=== PATIENT | female | born 1955 | race Caucasian/White ===

== ENCOUNTER 2019-12-16 02:05 | Emergency (ER) | payer BC ==
[~2019-12-16] VITALS: Ht 175.3 cm; Wt 102.1 kg
[~2019-12-16 02:05] MED LIST: AMBIEN CR12.5 MG PO; CYCLOBENZAPRINE5 MG PO; MACRODANTIN100 MG PO; MOTRIN200 MG PO; PROZAC40 MG PO; WELLBUTRIN SR150 MG PO; WELLBUTRIN XL300 MG PO
[2019-12-16] MEDS ORDERED: HYDROCODONE/APAP 10MG-325MG TAB PO ONE (02:15)
--- NOTE | 2019-12-16 03:41 | Emergency Department Note ---
History of Present Illnes History of Present Illness Chief Complaint: Extremity Trauma/Pain History of Present Illness This is a 64 year old female PRESENTS TO ED WITH EDEMA, PAIN, OBVIOUS DEFORMITY TO RIGHT WRIST, PULSES PRESENT, EQUAL,.pt states she fell and injured her wrist while walking her dog Historian: Patient Arrival Mode: Car Onset (how long ago): hour(s) (6) Location: right wrist,forearm, and hand Quality: pain, swelling Radiation: Reports non-radiation Severity: moderate Onset quality: sudden Duration (how long): hour(s) (6) Timing of current episode: constant Progression: unchanged Chronicity: new Context: Reports trauma/injury (fell and landed on right wrist while walking dog) Relieving factors: none Exacerbating factors: movement Associated symptoms: Reports denies other symptoms Past Medical/Family History Physician Review I have reviewed the patient's past medical and family history. Any updates have been documented here. Past Medical History Recent Fever: No Clinical Suspicion of Infectio: No New/Unexplained Change in Ment: No Past Medical History: Depression Other Medical History: DEPRESSION Past Surgical History: Other Surgery: MULTIPLE FOOT KIDNEY STONE Social History Smoking Cessation: Never Smoker Counseling Performed: No Alcohol Use: None Any Illegal Drug Use: No Physically hurt or threatened: No Other Last Tetanus: 2009 Any Pre-Existing Lines (PICC,: No Review of Systems Review of Systems Constitutional: Reports no symptoms EENTM: Reports no symptoms Cardiovascular: Reports no symptoms Respiratory: Reports no symptoms Gastrointestinal: Reports no symptoms Genitourinary: Reports no symptoms Musculoskeletal: Reports as per HPI Integumentary: Reports no symptoms Neurological: Reports no symptoms Psychological: Reports no symptoms Endocrine: Reports no symptoms Hematological/Lymphatic: Reports no symptoms Physical Exam Related Data Allergies: Coded Allergies: No Known Drug Allergies (Verified Allergy, Unknown, 10/27/09) Triage Vital Signs Vital Signs Date Time Temp Pulse Resp B/P (MAP) Pulse Ox O2 Delivery O2 Flow Rate FiO2 12/16/19 02:29 98.2 76 16 123/71 98 Room Air Vital signs reviewed: Yes Physical Exam CONSTITUTIONAL Constitutional: Present well-developed, Present well-nourished, Present distressed (mild distress) HENT HENT: Present normocephalic, Present atraumatic, Present oropharynx clear/moist, Present nose normal HENT L/R: Present left ext ear normal, Present right ext ear normal EYES Eyes: Reports PERRL, Reports conjunctivae normal NECK Neck: Present ROM normal PULMONARY Pulmonary: Present effort normal, Present breath sounds normal CARDIOVASCULAR Cardiovascular: Present regular rhythm, Present heart sounds normal, Present capillary refill normal, Present normal rate GASTROINTESTINAL Abdominal: Present soft, Present nontender, Present bowel sounds normal GENITOURINARY Genitourinary: Present exam deferred SKIN Skin: Present warm, Present dry MUSCULOSKELETAL Musculoskeletal: Present tenderness (right distal wrist at radial aspect), Present swelling (radial aspect of right wrist) NEUROLOGICAL Neurological: Present alert, Present oriented x 3, Present no gross motor or sensory deficits PSYCHOLOGICAL Psychological: Present mood/affect normal, Present judgement normal Results Imaging Imaging results reviewed: Yes Impressions non displaced right distal radius fracture. Procedures Orthopedic Splinting/Casting Injury: Injury #1 Side: right Upper exremity injury location: wrist Upper extremity immobilizer: wrist splint (preformed velcro) Assessment & Plan Medical Decision Making MDM pt with right wrist, hand and forearm pain s/p fall. xrays ordered to al for fracture pt with non displaced distal right radius fracture. discharged with following prescriptions tylenol #3 1 po q 6 hours prn pain #20 naproxen 500 mg po bid #[address] narayan(ortho) for follow up Reassessment Reassessment time: 04:06 Reassessment pt states pain has improved since receiving norco 10. i went over xrays with pt. Assessment & Plan Final Impression: (1) Nondisplaced fracture of distal end of right radius Last Vital Signs Date Time Temp Pulse Resp B/P (MAP) Pulse Ox O2 Delivery O2 Flow Rate FiO2 12/16/19 02:29 98.2 76 16 123/71 98 Room Air Home Meds Reported Medications Cyclobenzaprine Hcl (FLEXERIL) 5 Mg Tablet, 5 MG PO TID 01/17/16 Ibuprofen (MOTRIN) 200 Mg Tab, 200 MG PO TID, TAB 01/17/16 Nitrofurantoin Macrocrystal (MACRODANTIN) 100 Mg Capsule, 100 MG PO BID, CAP 01/17/16 Bupropion Hcl (WELLBUTRIN XL) 300 Mg Tab.er.24h, 300 MG PO DAILY 10/11/13 Zolpidem Tartrate (AMBIEN CR) 12.5 Mg Tabcr, 12.5 MG PO QHS 07/18/13 Fluoxetine Hcl (PROZAC) 40 Mg Capsule, 40 MG PO DAILY 07/18/13 Medications in the ED Acetaminophen/ Hydrocodone Bitart 1 ea ONCE ONCE PO Last administered on 12/16/19at 02:43; Admin Dose 1 EA; Start 12/16/19 at 02:15; Stop 12/16/19 at 02:18; Status DC LINA DARNELL MD Dec 16, 2019 03:41
--- NOTE | 2019-12-16 04:04 | Diagnostic Imaging Report ---
X-ray right hand 3 views X-ray right wrist 3 views X-ray right forearm 2 views HISTORY: Pain. COMPARISON: None available. FINDINGS: Bones: Nondisplaced distal radial fracture. Joints: The joint spaces are well-maintained. Scattered degenerative changes. Soft tissues: Mild edema about the wrist. IMPRESSION: Nondisplaced distal radial fracture. Signed by: José Miguel Castro DO on 12/16/2019 4:01 AM
== END 2019-12-16 04:21 | disposition home or self-care (01) ==
LOC: ER 02:26
DX: S52.501A Unspecified fracture of the lower end of right radius, initial encounter for closed fracture (principal); W18.39XA Other fall on same level, initial encounter; Y93.K1 Activity, walking an animal; Y92.480 Sidewalk as the place of occurrence of the external cause; F32.9 Major depressive disorder, single episode, unspecified
CPT/HCPCS: 99283

== ENCOUNTER → 2020-06-13 | Outpatient (CLI) | payer OTHER ==
[~2020-06-13] MED LIST changes: +COVID-19 VACC, MRNA(MODERNA)/PF 100 MCG/0.5 ML VIAL IM ONE
== END ==
LOC: VACCPMC 16:00
DX: Z23 Encounter for immunization (principal); Z20.822 Contact with and (suspected) exposure to COVID-19

== ENCOUNTER → 2020-07-13 | Outpatient (CLI) | payer OTHER | END | DRG 951 | LOC: VACCPMC 08:02 | DX: Z23 Encounter for immunization (principal); Z20.822 Contact with and (suspected) exposure to COVID-19 | CPT/HCPCS: 0012A; 91301 ==